=== PATIENT | female | born 1965 | race African-American/Black ===

== ENCOUNTER 2018-12-09 21:11 | Inpatient (IN) | payer MEDICAID ==
[~2018-12-09] VITALS: Ht 154.9 cm; Wt 63.0 kg
[2018-12-09] MEDS ORDERED: MORPHINE SULFATE 4 MG/ML CPJ (NOT FOR IM USE) IV ONE (22:15)
[2018-12-09 23:41] LABS: BASOPHILS % 0.4 % (0.0-2.0); EOSINOPHILS % 0.1 % (0.0-5.0); HEMATOCRIT. 40.1 % (36.0-48.0); HEMOGLOBIN. 13.7 g/dL (12.0-16.0); LYMPHOCYTES % 7.4 % (20.0-50.0); MEAN CORPUSCULAR HEMOGLOBIN 25.6 pg (28.0-32.0); MEAN CORPUSCULAR VOLUME 74.8 fL (81.0-99.0); MEAN PLATELET VOLUME 9.1 fl (7.4-10.4); NEUTROPHILS % 89.1 % (40.0-76.0); PLATELET 218 x1000/uL (130-400); RED BLOOD CELL COUNT 5.36 mill/uL (4.2-5.4); RED CELL DISTRIBUTION WIDTH 16.8 % (11.6-14.6)
[2018-12-09 23:44] LABS: CHLORIDE 95 mEq/L (98-107)
[2018-12-10] MEDS ORDERED: DIPHENHYDRAMINE 50MG/ML VIAL IV PRN (02:00)
[2018-12-10] MEDS ORDERED: IPRATROPIUM/ALBUTEROL 0.5-3(2.5)MG/3ML NEB INH PRN (02:00)
[2018-12-10] MEDS ORDERED: MAGNESIUM/ALUMINUM HYDROXIDE/SIMETHICONE 30ML UDC PO PRN (02:00)
[2018-12-10] MEDS ORDERED: ONDANSETRON HCL 4MG/2ML INJ IV PRN (02:00)
[2018-12-10] MEDS ORDERED: ACETAMINOPHEN 325MG TABLET PEG PRN (02:00)
[2018-12-10] MEDS ORDERED: CLONIDINE 0.1MG TABLET PO PRN (02:00)
[2018-12-10] MEDS ORDERED: IOHEXOL-300 100 ML BOTTLE ONE (02:48)
[2018-12-10] MEDS ORDERED: MAGNESIUM HYDROXIDE 400MG/5ML 30ML UDC PO PRN (04:30)
[2018-12-10 08:00] VITALS: BP 126/58
[2018-12-10] MEDS: DOCUSATE SODIUM 250MG CAPSULE PO SCH ×2 (09:00→17:00)
[2018-12-10] MEDS ORDERED: METHYLPREDNISOLONE SOD SUCC 125 MG/2 ML VIAL IV SCH (09:00)
[2018-12-10] MEDS: SODIUM CHLORIDE 1000MG TABLET PO SCH (09:59)
[2018-12-10] MEDS: COLCHICINE 0.6MG TABLET PO SCH ×2 (09:59→20:58)
[2018-12-10] MEDS: HYDROCODONE/ACETAMINOPHEN 10/325MG TABLET PO PRN ×2 (10:00→16:04)
[2018-12-10 11:09] LABS: PHOSPHORUS 4.6 mg/dL (2.5-4.9)
[2018-12-10] MEDS: SODIUM CHLORIDE 0.9% INJ 3ML FLUSH IVF SCH (13:49)
[2018-12-10 16:00] VITALS: BP 100/65
[2018-12-10] MEDS ORDERED: METHYLPREDNISOLONE SOD SUCC 125 MG/2 ML VIAL IV NR (16:30)
[2018-12-10 20:00] VITALS: BP 126/77
[2018-12-10] MEDS: GABAPENTIN 100MG CAPSULE PO SCH (20:59)
[2018-12-10] MEDS ORDERED: MORPHINE SULFATE 15MG TABLET SR PO SCH (21:00)
[2018-12-11] VITALS: BP 140/79
[2018-12-11] MEDS: SODIUM CHLORIDE 0.9% INJ 3ML FLUSH IVF SCH ×3 (00:10→14:52)
[2018-12-11] MEDS: HYDROCODONE/ACETAMINOPHEN 10/325MG TABLET PO PRN ×2 (00:10→15:00)
[2018-12-11 04:00] VITALS: BP 149/74
[2018-12-11] MEDS: INDOMETHACIN 25MG CAPSULE PO SCH ×2 (06:19→14:00)
[2018-12-11 08:00] VITALS: BP 117/82
[2018-12-11 08:04] LABS: HEMATOCRIT. 37.6 % (36.0-48.0); HEMOGLOBIN. 12.7 g/dL (12.0-16.0); MEAN CORPUSCULAR HEMOGLOBIN 25.4 pg (28.0-32.0); MEAN CORPUSCULAR VOLUME 74.9 fL (81.0-99.0); MEAN PLATELET VOLUME 8.9 fl (7.4-10.4); PLATELET 246 x1000/uL (130-400); RED BLOOD CELL COUNT 5.01 mill/uL (4.2-5.4); RED CELL DISTRIBUTION WIDTH 17.3 % (11.6-14.6)
[2018-12-11] MEDS: DOCUSATE SODIUM 250MG CAPSULE PO SCH ×2 (09:30→16:20)
[2018-12-11] MEDS: SODIUM CHLORIDE 1000MG TABLET PO SCH (09:30)
[2018-12-11] MEDS: COLCHICINE 0.6MG TABLET PO SCH ×2 (09:30→21:08)
[2018-12-11] MEDS: MORPHINE SULFATE 15MG TABLET SR PO SCH ×2 (09:31→21:10)
[2018-12-11 10:32] LABS: CHLORIDE 98 mEq/L (98-107)
[2018-12-11 10:46] LABS: PHOSPHORUS 5.4 mg/dL (2.5-4.9)
[2018-12-11 13:15] VITALS: BP 110/68
[2018-12-11 14:10] LABS: PLATELET ESTIMATE NORMAL
[2018-12-11] MEDS ORDERED: DEXT 5%/0.9% NACL 1,000 ML IV ONE (15:15)
[2018-12-11 16:00] VITALS: BP 110/71
[2018-12-11 20:00] VITALS: BP 113/75
[2018-12-11] MEDS: GABAPENTIN 100MG CAPSULE PO SCH (21:07)
[2018-12-12] VITALS: BP 102/66
[2018-12-12] MEDS: HYDROCODONE/ACETAMINOPHEN 10/325MG TABLET PO PRN ×2 (03:38→12:52)
[2018-12-12 04:00] VITALS: BP 102/60
[2018-12-12 08:00] VITALS: BP 102/67
[2018-12-12] MEDS: COLCHICINE 0.6MG TABLET PO SCH ×2 (09:41→20:22)
[2018-12-12] MEDS: DOCUSATE SODIUM 250MG CAPSULE PO SCH ×2 (09:41→18:51)
[2018-12-12] MEDS: MORPHINE SULFATE 15MG TABLET SR PO SCH ×2 (09:42→20:23)
[2018-12-12] MEDS: SODIUM CHLORIDE 1000MG TABLET PO SCH (09:42)
[2018-12-12 10:39] LABS: CLARITY URINE CLEAR (CLEAR); COLOR URINE YELLOW (YELLOW); KETONES URINE NEGATIVE (NEGATIVE); LEUKOCYTE ESTERASE URINE NEGATIVE (NEGATIVE); NITRITE URINE NEGATIVE (NEGATIVE); OCCULT BLOOD URINE NEGATIVE (NEGATIVE); PROTEIN URINE TRACE (NEGATIVE); SPECIFIC GRAVITY URINE 1.022 (1.005-1.030); UROBILINOGEN URINE 0.2 E.U./dL (0.2-1.0)
[2018-12-12 12:00] VITALS: BP 100/61
[2018-12-12] MEDS: SODIUM CHLORIDE 0.9% INJ 3ML FLUSH IVF SCH ×3 (14:00→20:22)
[2018-12-12] MEDS ORDERED: PROCHLORPERAZINE 10MG/2ML VIAL IM PRN (14:45)
[2018-12-12 16:00] VITALS: BP 110/65
[2018-12-12 16:30] LABS: BASOPHILS % 0.5 % (0.0-2.0); EOSINOPHILS % 0.1 % (0.0-5.0); HEMATOCRIT. 35.4 % (36.0-48.0); HEMOGLOBIN. 11.7 g/dL (12.0-16.0); MEAN CORPUSCULAR VOLUME 75.4 fL (81.0-99.0); MEAN PLATELET VOLUME 8.4 fl (7.4-10.4); MONOCYTES % 5.3 % (2.0-8.0); NEUTROPHILS % 84.1 % (40.0-76.0); PLATELET 204 x1000/uL (130-400); RED BLOOD CELL COUNT 4.69 mill/uL (4.2-5.4); RED CELL DISTRIBUTION WIDTH 17.2 % (11.6-14.6)
[2018-12-12] MEDS: METOCLOPRAMIDE HCL 10MG/2ML VIAL IV SCH (18:51)
[2018-12-12 20:00] VITALS: BP 135/64
[2018-12-12] MEDS: GABAPENTIN 100MG CAPSULE PO SCH (20:22)
[2018-12-13] VITALS (50 sets, daily range): BP systolic 33–146; BP diastolic 18–127
[2018-12-13] MEDS: METOCLOPRAMIDE HCL 10MG/2ML VIAL IV SCH ×4 (00:12→17:04)
[2018-12-13] MEDS: SODIUM CHLORIDE 0.9% INJ 3ML FLUSH IVF SCH ×2 (05:57→13:29)
[2018-12-13 08:27] LABS: BG BASE EXCESS -6.7 mmol/L (-2.0-2.0); BG CARBOXYHEMOGLOBIN 0.7 % (0.5-1.5); BG DEOXYHEMOGLOBIN 7.1 % (0.0-5.0); BG FRACTION INSPIRED OXYGEN 99.8; BG HCO3 ACT 15.4 mmol/L (22.0-26.0); BG METHEMOGLOBIN 0.2 % (0.0-1.5); BG OXYGEN SATURATION 92.8 % (92.0-98.5); BG PCO2 22.5 mmHg (35.0-45.0); BG PH 7.452 (7.350-7.450); BG PO2 68.8 mmHg (75.0-100.0); BG SAMPLE SITE LEFT RADIAL; BG TOTAL HEMOGLOBIN 12.7 g/dL (12.0-18.0); BG VENT MODE MASK - NRB
[2018-12-13] MEDS ORDERED: NOREPINEPHRINE 4MG/250ML PMX 250 ML IV STA (08:36)
[2018-12-13] MEDS ORDERED: NOREPINEPHRINE 4 MG in DEXTROSE 5% WATER 250 ML IV PRN (08:45)
[2018-12-13] MEDS: COLCHICINE 0.6MG TABLET PO SCH (09:00)
[2018-12-13] MEDS: SODIUM CHLORIDE 1000MG TABLET PO SCH (09:00)
[2018-12-13] MEDS ORDERED: AMLODIPINE 2.5MG TABLET PO SCH (09:00)
[2018-12-13] MEDS: DOCUSATE SODIUM 250MG CAPSULE PO SCH ×2 (09:00→17:00)
[2018-12-13] MEDS: MORPHINE SULFATE 15MG TABLET SR PO SCH (09:00)
[2018-12-13] MEDS ORDERED: LIDOCAINE HCL 1% 20ML VIAL (Pyxis) INJ ONE (09:31)
[2018-12-13] MEDS ORDERED: ENOXAPARIN 40MG/0.4ML SYR SUBCUT SCH (10:00)
[2018-12-13] MEDS ORDERED: NOREPINEPHRINE 4MG/250ML PMX 250 ML IV SCH (10:00)
[2018-12-13] MEDS ORDERED: SODIUM CHLORIDE 0.9% 500 ML IV SCH (10:30)
[2018-12-13 10:57] LABS: BG BASE EXCESS -7.9 mmol/L (-2.0-2.0); BG CARBOXYHEMOGLOBIN 0.3 % (0.5-1.5); BG DEOXYHEMOGLOBIN 6.9 % (0.0-5.0); BG FRACTION INSPIRED OXYGEN 99.8; BG HCO3 ACT 15.4 mmol/L (22.0-26.0); BG METHEMOGLOBIN 0.8 % (0.0-1.5); BG PCO2 25.6 mmHg (35.0-45.0); BG PH 7.396 (7.350-7.450); BG PO2 74.8 mmHg (75.0-100.0); BG SAMPLE SITE LEFT RADIAL; BG TOTAL HEMOGLOBIN 12.2 g/dL (12.0-18.0); BG VENT MODE MASK - NRB
[2018-12-13] MEDS: PHENYLEPHRINE 40 MG in DEXT 5% WATER 246 ML IV PRN ×3 (11:02→17:44)
[2018-12-13] MEDS ORDERED: IPRATROPIUM BROMIDE (0.02%) 0.5MG/2.5ML NEB HHN SCH (12:00)
[2018-12-13] MEDS: NOREPINEPHRINE 4MG in DEXT 5% WATER 250ML IV PRN ×3 (12:22→16:46)
[2018-12-13 13:13] LABS: HEMATOCRIT. 36.1 % (36.0-48.0); HEMOGLOBIN. 11.8 g/dL (12.0-16.0); MEAN CORPUSCULAR HEMOGLOBIN 25.1 pg (28.0-32.0); MEAN CORPUSCULAR VOLUME 76.4 fL (81.0-99.0); MEAN PLATELET VOLUME 8.2 fl (7.4-10.4); PLATELET 173 x1000/uL (130-400); RED BLOOD CELL COUNT 4.72 mill/uL (4.2-5.4); RED CELL DISTRIBUTION WIDTH 17.1 % (11.6-14.6)
[2018-12-13 13:28] LABS: CHLORIDE 100 mEq/L (98-107)
[2018-12-13] MEDS ORDERED: PROPOFOL 10MG/ML 100ML 100 ML IV PRN (13:45)
[2018-12-13] MEDS: VASOPRESSIN 10 UNIT in SODIUM CHLORIDE 0.9% 99.5 ML IV PRN ×2 (14:10→17:14)
[2018-12-13] MEDS ORDERED: PANTOPRAZOLE SODIUM 40 MG/VIAL IV SCH (14:45)
[2018-12-13 15:48] LABS: NUCLEATED RED BLOOD CELLS 2 /100 WBC; PLATELET ESTIMATE NORMAL
[2018-12-13] MEDS ORDERED: SUCCINYLCHOLINE CHLORIDE 200MG/10ML IV ONE (15:48)
[2018-12-13] MEDS ORDERED: ETOMIDATE 2MG/ML 10ML VIAL IV ONE (15:48)
[2018-12-13 16:14] LABS: BG BASE EXCESS -21.4 mmol/L (-2.0-2.0); BG CARBOXYHEMOGLOBIN 0.3 % (0.5-1.5); BG DEOXYHEMOGLOBIN 6.6 % (0.0-5.0); BG FRACTION INSPIRED OXYGEN 100; BG HCO3 ACT 7.1 mmol/L (22.0-26.0); BG METHEMOGLOBIN 0.3 % (0.0-1.5); BG OXYGEN SATURATION 93.4 % (92.0-98.5); BG OXYHEMOGLOBIN 92.8 % (94.0-97.0); BG PCO2 24.4 mmHg (35.0-45.0); BG PO2 100.9 mmHg (75.0-100.0); BG SAMPLE SITE LEFT RADIAL; BG TIDAL VOLUME(mL) 500 mL; BG VENT MODE VENT - A/C; BG VENT RATE 16 set
[2018-12-13] MEDS ORDERED: SODIUM BICARBONATE 8.4% 1 MEQ/ML 50ML SYR IV NR (16:45)
[2018-12-13] MEDS ORDERED: NOREPINEPHRINE 16 MG in DEXT 5% WATER 234 ML IV PRN (17:00)
[2018-12-13] MEDS ORDERED: ENOXAPARIN 60MG/0.6ML SYR SUBCUT SCH (18:00)
[2018-12-13] MEDS ORDERED: SODIUM BICARBONATE 150 MEQ in DEXTROSE 5% WATER 1,000 ML IV SCH (18:00)
[2018-12-13] MEDS ORDERED: EPINEPHRINE 1 MG in SODIUM CHLORIDE 0.9% 249 ML IV PRN (18:19)
[2018-12-13] MEDS ORDERED: AMIODARONE HCL 900 MG in DEXT 5% WATER 500 ML IV PRN (18:30)
== END 2018-12-13 22:47 | disposition expired | DRG 190 ==
LOC: ER 21:11 → 5WST 12-10 01:49 → ENRESERV 12-10 04:30 → MICUNO 12-13 08:40
PROVIDERS: ADMIT Internal Medicine; ATTEND Internal Medicine
PROC: 0BH17EZ Insertion of Endotracheal Airway into Trachea, Via Natural or Artificial Opening (ICD-10-PCS; principal; 2018-12-13)
PROC: 5A1935Z Respiratory Ventilation, Less than 24 Consecutive Hours (ICD-10-PCS; 2018-12-13)
PROC: 02HV33Z Insertion of Infusion Device into Superior Vena Cava, Percutaneous Approach (ICD-10-PCS; 2018-12-13)
PROC: B548ZZA Ultrasonography of Superior Vena Cava, Guidance (ICD-10-PCS; 2018-12-13)
PROC: 5A12012 Performance of Cardiac Output, Single, Manual (ICD-10-PCS; 2018-12-13)
PROC: 0W9B3ZZ Drainage of Left Pleural Cavity, Percutaneous Approach (ICD-10-PCS; 2018-12-13)
DX: I21.4 Non-ST elevation (NSTEMI) myocardial infarction (principal); J96.00 Acute respiratory failure, unspecified whether with hypoxia or hypercapnia; E43 Unspecified severe protein-calorie malnutrition; I50.43 Acute on chronic combined systolic (congestive) and diastolic (congestive) heart failure; N17.9 Acute kidney failure, unspecified; R65.10 Systemic inflammatory response syndrome (SIRS) of non-infectious origin without acute organ dysfunction; C78.7 Secondary malignant neoplasm of liver and intrahepatic bile duct; E87.2 Acidosis; I11.0 Hypertensive heart disease with heart failure; C50.919 Malignant neoplasm of unspecified site of unspecified female breast; I46.9 Cardiac arrest, cause unspecified; E86.0 Dehydration; E87.1 Hypo-osmolality and hyponatremia; M17.11 Unilateral primary osteoarthritis, right knee; I27.20 Pulmonary hypertension, unspecified; M10.9 Gout, unspecified; Z83.3 Family history of diabetes mellitus; Z85.3 Personal history of malignant neoplasm of breast; Z90.11 Acquired absence of right breast and nipple; Z92.21 Personal history of antineoplastic chemotherapy; Z68.26 Body mass index [BMI] 26.0-26.9, adult
CPT/HCPCS: 36415; 36569; 36600; 71045; 71260; 76937; 80048; 82375; 82805; 82962; 83605; 83735; 84100; 84145; 84443; 84484; 84550; 85379; 93005; 93306; 93970; 96374; 97162; 99285; C1725; C1893; C9113; J0330; J1650; J2270; J2370; J2405; J2765; J2930; J3490; J7040; J7042; J7050; J7060; J7070; Q9967; A4315